=== PATIENT | female | born 1985 | race Hispanic/Latino ===

== ENCOUNTER 2018-07-29 17:10 | Emergency (ER) | payer SELFPAY ==
[2018-07-29] MEDS ORDERED: Acetaminophen 500 MG TAB ONE (17:28)
[2018-07-29] MEDS ORDERED: Prochlorperazine Maleate 5 MG TAB ONE (17:28)
[2018-07-29] MEDS ORDERED: diphenhydrAMINE 25 MG CAP ONE (17:28)
--- NOTE | 2018-07-29 18:11 | CT ---
CT brain noncontrast: HISTORY: Head trauma FINDINGS: There is no evidence of acute intra-axial or extra-axial hemorrhage. There is no midline shift or any other mass effect. There is no extra-axial fluid collection. There is no evidence of obstructive hydrocephalus. Calvarium is intact. IMPRESSION: No acute intracranial findings.
[2018-07-29] MEDS ORDERED: Ibuprofen 600 MG TAB ONE (18:19)
== END 2018-07-29 18:22 | disposition home or self-care (01) ==
LOC: SCSER 17:10
DX: R51 Headache (principal); F41.9 Anxiety disorder, unspecified; Z87.891 Personal history of nicotine dependence
CPT/HCPCS: 70450; Q0163; Q0164